=== PATIENT | female | born 1975 | race African-American/Black ===

== ENCOUNTER 2018-05-22 09:12 | Day surgery (SDC) | payer OTHER ==
[~2018-05-22 09:12] MED LIST: KETOROLAC 60 MG/2 ML VIAL (J1885) As Ordered; LIDOCAINE 2% INJ 100 MG/5 ML SDV (FOR ANES.) As Ordered; MIDAZOLAM INJ 2 MG/2 ML VIAL (J2250) As Ordered; ONDANSETRON 4MG/2ML VIAL (J2405) As Ordered; PROPOFOL 200 MG/20 ML VIAL As Ordered; dexameTHASONE 4 MG/ML 1ML VIAL (J1100) As Ordered; fentaNYL 100 MCG/2 ML INJECTION (J3010) As Ordered
[2018-05-22 10:04] LABS: HEMATOCRIT 33.8 % (36.0-47.0); HEMOGLOBIN 11.9 g/dl (12.0-15.5)
[2018-05-22] MEDS: LR 1,000 ML IV (10:04)
[2018-05-22 10:17] LABS: CONTROL LINE HCG INT CTR LINE PRESENT; HCG, SERUM QUALITATIVE NEGATIVE (NEGATIVE)
[2018-05-22] MEDS ORDERED: LR 1,000 ML IV (13:00)
[2018-05-22] MEDS ORDERED: PERCOCET 5MG/325MG TAB PO (13:00)
[2018-05-22] MEDS ORDERED: ONDANSETRON 4MG/2ML VIAL (J2405) IV (13:00)
[2018-05-22] MEDS ORDERED: fentaNYL 100 MCG/2 ML INJECTION (J3010) IV (13:00)
[2018-05-22] MEDS ORDERED: CHLOROPROCAINE 2 % INJ PRES.FREE 20 ML VIAL (J2400) As Ordered (13:37)
== END 2018-05-22 15:10 | disposition home or self-care (01) ==
LOC: M SDC 09:12
DX: T83.39XA Other mechanical complication of intrauterine contraceptive device, initial encounter (principal)
CPT/HCPCS: 58562